=== PATIENT | female | born 1995 | race Caucasian/White ===

== ENCOUNTER 2022-05-03 11:02 | Outpatient (CLI) | payer OTHER, SELFPAY ==
[2022-05-03 12:22] LABS: Basophils Absolute Auto 0.1 K/mm3 (0.0-0.1); Basophils Percent Auto 0.3 % (0.2-1.2); Eosinophils Absolute Auto 0.2 K/mm3 (0-0.3); Eosinophils Percent Auto 1.1 % (0-4.4); Hematocrit 33.3 % (37.0-47.0); Hemoglobin 10.7 g/dL (12.0-15.0); Immature Granulocyte Absolute 0.08 K/mm3 (0.00-0.031); Immature Granulocyte Percent A 0.5 % (0-0.5); Lymphocytes Absolute Auto 3.61 K/mm3 (0.9-3.2); Lymphocytes Percent Auto 22.7 % (18.3-44.2); Mean Corpuscular HGB Conc 32.1 g/dl (32-36); Mean Corpuscular Hemoglobin 29.7 pg (26-34); Mean Corpuscular Volume 92.5 fl (80-100); Monocytes Absolute Auto 1.6 K/mm3 (0.1-0.6); Monocytes Percent Auto 9.8 % (2.6-8.5); Neutrophils Absolute Auto 10.4 K/mm3 (1.3-6.7); Neutrophils Percent Auto 65.6 % (45.5-73.1); Platelet Count Result 350 k/mm3 (150-375); Red Cell Distribution Width 13.1 % (11.5-14.5); White Blood Count 15.9 K/mm3 (4.5-10.0)
[2022-05-03 12:31] LABS: Glucose 1 Hour PP 50gm Dose 107 mg/dL
[2022-05-03 13:12] LABS: HIV 1/2 Ab P24 Ag Result Negative (Negative)
== END 2022-05-03 11:03 | disposition home or self-care (01) ==
LOC: ANHLAB 11:03
PROVIDERS: PCP Family Medicine; Visit Provider Obstetrics & Gynecology
DX: Z34.90 Encounter for supervision of normal pregnancy, unspecified, unspecified trimester (principal)
CPT/HCPCS: 36415; 82947; 85025; 85461; 86703; G0432

== ENCOUNTER 2022-05-24 07:18 | Outpatient (RCR) | payer OTHER, SELFPAY ==
[2022-05-24] MEDS: RHO(D) IMMUNE GLOBULIN 300 MCG/2 ML SYRINGE IM (11:30)
== END 2022-08-22 23:59 | disposition home or self-care (01) ==
LOC: ANHLAB 07:18
PROVIDERS: PCP Family Medicine; Visit Provider Obstetrics & Gynecology
DX: Z29.13 Encounter for prophylactic Rho(D) immune globulin (principal); O36.0190 Maternal care for anti-D [Rh] antibodies, unspecified trimester, not applicable or unspecified; Z3A.00 Weeks of gestation of pregnancy not specified
CPT/HCPCS: 36415; 85461; 86850; 86900; 86901; 90384; 96372; J2790

== ENCOUNTER 2022-07-26 21:00 | Observation (INO) | payer OTHER, SELFPAY ==
[2022-07-26 21:20] VITALS: BMI 37.7
[2022-07-26 23:19] VITALS: PULSE 93; O2SAT 99
[2022-07-26 23:24] VITALS: PULSE 92; O2SAT 100
--- NOTE | 2022-07-26 23:28 | OBADM ---
This patient, Shonda Dean, admitted to the OB room Labor/Delivery/Recovery 106 for observation. Patient/family oriented to hospital policies and general routines including ID bracelet, bed and alarms, visiting hours, pain management, procedures, bathroom and other care routines, personal items, smoking policy, room service/diet, and visiting hours. Patient/Family are encouraged to report perceived risks to care and to ask questions if they do not understand what they are told or what they should do.
[2022-07-26 23:29] VITALS: PULSE 102; O2SAT 100
[2022-07-26 23:30] VITALS: BP 125/84; PULSE 101
[2022-07-26 23:34] VITALS: PULSE 98; O2SAT 99
[2022-07-26 23:39] VITALS: PULSE 97; O2SAT 99
--- NOTE | 2022-07-29 11:21 | PM.OBTRLD ---
OB - Triage/Final Diagnosis Visit Information Date of evaluation: 07/26/22 Reason for evaluation: threatened labor Comments/Additional reasons for admission: I have assessed the risk for this patient, Shonda Dean, and determined that she would benefit from observation care.
--- NOTE | 2022-07-29 11:22 | PM.OBTRLD ---
OB - Triage/Final Diagnosis Visit Information Date of evaluation: 07/28/22 Reason for evaluation: threatened labor Comments/Additional reasons for admission: I have assessed the risk for this patient, Shonda Dean, and determined that she would benefit from observation care.
== END 2022-07-26 23:42 | disposition home or self-care (01) ==
PROVIDERS: Admitting Provider Student in an Organized Health Care Education/Training Program; PCP Family Medicine; Visit Provider Student in an Organized Health Care Education/Training Program
DX: O47.03 False labor before 37 completed weeks of gestation, third trimester (principal); Z3A.39 39 weeks gestation of pregnancy
CPT/HCPCS: 84112; G0378; G0379

== ENCOUNTER 2022-07-28 14:18 | Observation (INO) | payer OTHER, SELFPAY ==
[2022-07-28 17:16] VITALS: BP 112/67; PULSE 89
[2022-07-28 17:31] VITALS: BP 100/77; PULSE 107
--- NOTE | 2022-08-01 11:06 | PM.OBTRLD ---
OB - Triage/Final Diagnosis Visit Information Reason for evaluation: threatened labor Comments/Additional reasons for admission: I have assessed the risk for this patient, Shonda Dean, and determined that she would benefit from observation care.
== END 2022-07-28 17:50 | disposition home or self-care (01) ==
PROVIDERS: Admitting Provider Student in an Organized Health Care Education/Training Program; PCP Family Medicine; Visit Provider Obstetrics & Gynecology
DX: O47.03 False labor before 37 completed weeks of gestation, third trimester (principal); Z3A.39 39 weeks gestation of pregnancy
CPT/HCPCS: G0378; G0379

== ENCOUNTER 2022-07-30 08:19 | Inpatient (IN) | payer OTHER, SELFPAY ==
[2022-07-30] VITALS (81 sets, daily range): BP systolic 88–141; BP diastolic 41–88; PULSE 75–107; RESP 16; TEMP 36.3–36.7; O2SAT 94–100; BMI 40.4
[2022-07-30 09:44] LABS: Basophils Absolute Auto 0.1 K/mm3 (0.0-0.1); Basophils Percent Auto 0.5 % (0.2-1.2); Eosinophils Absolute Auto 0.1 K/mm3 (0-0.3); Eosinophils Percent Auto 0.7 % (0-4.4); Hematocrit 34.2 % (37.0-47.0); Hemoglobin 10.7 g/dL (12.0-15.0); Immature Granulocyte Absolute 0.09 K/mm3 (0.00-0.031); Immature Granulocyte Percent A 0.6 % (0-0.5); Lymphocytes Absolute Auto 3.12 K/mm3 (0.9-3.2); Lymphocytes Percent Auto 20.4 % (18.3-44.2); Mean Corpuscular HGB Conc 31.3 g/dl (32-36); Mean Corpuscular Hemoglobin 28.4 pg (26-34); Mean Corpuscular Volume 90.7 fl (80-100); Mean Platelet Volume 10.9 fl (7.4-10.4); Monocytes Absolute Auto 1.4 K/mm3 (0.1-0.6); Monocytes Percent Auto 8.9 % (2.6-8.5); Neutrophils Absolute Auto 10.5 K/mm3 (1.3-6.7); Neutrophils Percent Auto 68.9 % (45.5-73.1); Platelet Count Result 369 k/mm3 (150-375); Red Blood Count 3.77 M/mm3 (4.2-5.4); Red Cell Distribution Width 13.9 % (11.5-14.5); White Blood Count 15.3 K/mm3 (4.5-10.0)
[2022-07-30] MEDS: LACTATED RINGERS 1,000 ML 125 ML IV CONT (09:59)
--- NOTE | 2022-07-30 10:07 | ADMGEN ---
This patient, Shonda Dean, was admitted to Labor/Delivery/Recovery 106-00. Patient/family oriented to hospital policies and general routines including ID bracelet, bed and alarms, visiting hours, pain management, procedures, bathroom and other care routines, personal items, smoking policy, room service/diet, and visiting hours. Information on how to activate the Rapid Response Team has been discussed. Patient/Family are encouraged to report perceived risks to care and to ask questions if they do not understand what they are told or what they should do.
[2022-07-30] MEDS: fentaNYL CITRATE INJ (*CRX) 100 MCG/2 ML VIAL IV PUSH ×2 (11:10→13:02)
--- NOTE | 2022-07-30 11:58 | WPDOBADMIT ---
Obstetrics - Admit Note Admission Note: record reviewed. No pertinent additions to the history and/or any subsequent changes in the physical findings that are not consistent with the expected course of the were found. Additions to the history and/or subsequent changes in the physical findings follow. Shonda is a 26yo @ 40.0wks (JENNIFER 07/30/22) who presented to L&D in active labor; made change from 4 to 6cm. She denied VB or LOF. Good movement. Her is complicated by: - anxiety/depression-- zoloft 50 - h/o gallstones - tobacco abuse-- on nicotine patches - obesity - limited PNC; total of 8 visits FHT's: 120's/ mod hien/ + accels/ no decels - cat 1 TOCO: ctx's q3-5min Cervix: 6/90/-1 Membranes: AROM, clear 1155 Presentation: cephalic GBS negative, but only received results 1 hour ago, so she did receive 1 dose of vancomycin (PCN allergy), will not give further doses Will start low dose pitocin augmentation Anesthesia consult PRN pain Continuous monitoring
--- NOTE | 2022-07-30 12:03 | WPDHPUPDATE1 ---
History and Physical Update Update Date/Time: 07/30/22 12:03 History and Physical has been reviewed, including an updated exam of the patient. There are NO changes in the patient's condition. Risks, benefits, and alternatives have been discussed and questions answered. Patient agrees to proceed with procedure.
[2022-07-30] MEDS: OXYTOCIN 30 UNITS/NS 500 ML 30 UNITS/500 ML BAG IV CONT (12:30)
[2022-07-30] MEDS: LIDOCAINE HCL 1% PF 30 ML VIAL (14:40)
--- NOTE | 2022-07-30 14:46 | P.PCNOB_ITS ---
OB - Delivery Note Procedure Delivery date: 07/30/22 Delivery augmentation: Rupture of Membranes and Pitocin Delivery monitor: External FHT and External Uterine Route of delivery: Laceration Description: Perineal - 1st Degree and Labial (left) Delivery repair: vicryl Quantitative Blood Loss (ml): 350 Anesthesia type: None Disposition: Floor [place] Baby Date of : 07/30/22 Time of : 14:23 Weeks of gestation at delivery: 40 gender: Female Weight (pounds): 7 Weight (ounces): 10 presentation: vertex position: Left Occiput Anterior Placenta delivery description: Expressed Cord Vessel Description: 3 Vessels and Delayed Cord Clamping score one minute: 8 score five minutes: 9 Narrative: Shonda progressed to complete dilation with strong desire to push. She pushed for approximately 20 minutes with good maternal effort and delivered the head over intact. No nuchal cord was palpated. She easily delivered the 's shoulders and body without complication. The infant had spontaneous cry and was immediately placed skin to skin. Delayed cord clamping was performed. The umbilical cord was then clamped and cut. A segment of the cord was collected for cord gases. The remaining cord blood was collected for typing. With Pitocin running and gentle downward traction the cord, the placenta delivered without complications. Brisk bleeding was noted but bimanual massage was performed and good uterine tone was then noted. She was examined and a first-degree perineal laceration extending to the left labia was noted. It was repaired in the normal fashion using 2-0 Vicryl. Good uterine tone with minimal bleeding remained. Sponge, lap, instrument, and needle counts were correct at the end the procedure. Mom and baby were left bonding in the birthing suite in stable condition. [facility] Delivery Billing Delivery Delivery: Delivery Charge
[2022-07-30] MEDS: OXYTOCIN 30 UNITS/NS 500 ML 30 UNITS/500 ML BAG 125 UNITS IV CONT (15:05)
[2022-07-30] MEDS: ACETAMINOPHEN 325 MG TABLET 650 MG PO ×2 (16:36→23:55)
[2022-07-30] MEDS: BENZOCAINE 20% AER SPR (*SP) 56 GM CAN 1 SPRAY TOPICAL (16:37)
[2022-07-30] MEDS: WITCH HAZEL 40 PADS 1 PAD TOPICAL (16:37)
[2022-07-30] MEDS: SIMETHICONE 80 MG TAB.CHEW PO (23:55)
[2022-07-31 05:35] LABS: Hematocrit 30.7 % (37.0-47.0); Hemoglobin 9.7 g/dL (12.0-15.0)
[2022-07-31] MEDS: ACETAMINOPHEN 325 MG TABLET 650 MG PO ×2 (05:52→12:23)
[2022-07-31 07:35] VITALS: BP 119/84; PULSE 84; RESP 16; TEMP 36.6; O2SAT 97
[2022-07-31] MEDS: DOCUSATE SODIUM 100 MG CAPSULE PO (09:06)
[2022-07-31] MEDS: POLYSACCHARIDE IRON COMPLEX 150 MG CAPSULE PO (09:07)
[2022-07-31] MEDS: TETANUS,DIPHTHERIA,AC PERTUSSIS ADULT (0.5 ML) BOOSTRIX IM (09:08)
[2022-07-31 12:04] VITALS: BP 125/82; PULSE 82; RESP 16; TEMP 37.2; O2SAT 100
--- NOTE | 2022-07-31 12:20 | PM.OBDSVD ---
DS: Admitting Diagnosis Discharge Date 07/31/22 Admitting Diagnosis Intrauterine at term DS: Discharge Diagnosis Discharge Diagnosis (1) Supervision of high risk , unspecified, third trimester: Code(s): O09.93 - Supervision of high risk , unspecified, third trimester Status: Acute OB - DS: Summary OB Procedures : None OB Procedures Intrapartum: Spontaneous Vag Delivery OB Procedures: : None Peripartum Data Delivery Method: Natural Vaginal Laceration Description: Perineal - 1st Degree complications: none Status at Discharge Functional status at discharge: independent ambulation Overall status at discharge: patient is back to baseline Time Spent with Patient Time attestation: Total time spent providing and/or coordinating discharge services: Time spent: Less than 30 minutes Exam Const: General: comfortable and no acute distress Resp: Effort & Inspection: normal respiratory effort Auscultation: clear to auscultation bilaterally Cardio: Rate: regular rate GI: GI Palp: Yes Soft to palpation Auscultation: normal bowel sounds Other: Fundus firm below umbilicus Psych: Appearance: grossly normal Mental Status: mental status grossly normal Affect: normal affect DS: Data Data Completed and Pending Labs on day of discharge: Labs from last 24 hours 07/31/22 04:54 Hgb 9.7 L Hct 30.7 L Discharge Plan Discharge Discharging Clinician: Romulo Allison Patient Disposition: Home, Self-Care Activity: as tolerated and pelvic rest Diet: regular Patient Instructions: Antibiotic Form, Vaginal Delivery (DC) Stand Alone Forms: General Discharge Information Follow-up/Referrals: Romulo Allison MD [Physician] - Discharge Medications: New polysaccharide iron complex 150 mg iron Capsule 150 mg PO BIDWM Qty: 60 0RF ibuprofen 600 mg Tablet 600 mg PO Q6H PRN (Reason: Cramping) Qty: 30 0RF Continued PNV [id number] 90 mg iron- 1 mg-200 mg capsule 1 cap PO DAILY Qty: 90 3RF sertraline 50 mg tablet 100 mg PO DAILY Qty: 90 3RF acetaminophen [Tylenol Extra Strength] 500 mg tablet 1,000 mg PO Q6H PRN (Reason: fever or pain) Qty: 30 1RF Date of admission: 07/30/22 08:19 Primary Care Provider: Columba,Reynold Nick Admitting Provider: Lelia Jacobo Attending physician on admission: Lelia Jacobo Condition: Stable
[2022-07-31 12:26] VITALS: PULSE 82; RESP 16; O2SAT 100
[2022-07-31 12:38] LABS: Rapid Plasma Reagin Non-Reactive (NonReactive)
[2022-07-31] MEDS: medroxyPROGESTERone ACETATE IM 150 MG/ML SYR IM (15:10)
== END 2022-07-31 17:25 | disposition home or self-care (01) | DRG 560 ==
LOC: ANHLDR 09:36 → ANHOB2 07-31 12:22 → ANHLDR 08-01 11:00 → ANHOB2 08-01 11:00
PROVIDERS: Admitting Provider Obstetrics & Gynecology; PCP Family Medicine; Visit Provider Student in an Organized Health Care Education/Training Program
DX: O99.214 Obesity complicating childbirth (principal); E66.9 Obesity, unspecified; Z37.0 Single live birth; Z3A.40 40 weeks gestation of pregnancy; O99.344 Other mental disorders complicating childbirth; F41.8 Other specified anxiety disorders; F17.210 Nicotine dependence, cigarettes, uncomplicated; Z23 Encounter for immunization; O70.0 First degree perineal laceration during delivery; O99.334 Smoking (tobacco) complicating childbirth
CPT/HCPCS: 36415; 84112; 85014; 85018; 85025; 86592; 86850; 86900; 86901; 90471; 90686; 90715; A9270; G0008; G0378; G0379; J1050; J2590; J3010; J3370; J7120